=== PATIENT | male | born 1950 | race Caucasian/White ===

== ENCOUNTER 2020-10-16 15:10 | Inpatient (IN) | payer OTHER ==
[~2020-10-16] VITALS: Ht 188 cm; Wt 113.5 kg
[2020-10-16 15:45] LABS: BASOPHILS % (AUTO) 0.7 % (0.0-5.0); EOSINOPHILS % (AUTO) 2.4 % (0.0-8.0); HEMATOCRIT 37.9 % (42-54); LYMPHOCYTES % (AUTO) 26.7 % (21.0-51.0); MEAN CORPUSCULAR HEMOGLOBIN 29.5 pg (27.0-33.0); MEAN CORPUSCULAR HGB CONC 32.2 g/dL (32.0-36.0); MEAN CORPUSCULAR VOLUME 91.5 fL (79-99); NEUTROPHILS % (AUTO) 59.9 % (40.0-77.0); PLATELET COUNT (AUTO) 254 K/uL (130-400); RED BLOOD CELL COUNT(AUTO) 4.14 MIL/uL (4.50-6.20); RED CELL DISTRIBUTION WIDTH 15.4 % (11.0-15.5); WHITE BLOOD COUNT (AUTO) 8.8 K/uL (4.8-10.8)
[2020-10-16] MEDS ORDERED: ASPIRIN 325 MG TABLET ONE (15:46)
[2020-10-16 15:58] LABS: INR 1.1 (0.85-1.15); PROTHROMBIN TIME 11.9 SEC (9.6-11.6)
[2020-10-16 16:10] LABS: CREATININE 1.7 mg/dL (0.5-1.5); POTASSIUM 4.2 mmol/L (3.5-5.1)
[2020-10-16 16:15] LABS: ALBUMIN 3.4 g/dL (3.5-5.0); BILIRUBIN,TOTAL 0.5 mg/dL (0.2-1.0); TOTAL PROTEIN, SERUM 7.9 g/dL (6.0-8.3)
[2020-10-16] MEDS ORDERED: FUROSEMIDE 40MG VIAL ONE (17:09)
[2020-10-16] MEDS ORDERED: ACETAMINOPHEN 325 MG TAB PO PRN (18:45)
[2020-10-16] MEDS ORDERED: HEPARIN 25,000 UNITS/250ML D5W 250 ML IV PRN (19:00)
[2020-10-16 19:34] LABS: APPEARANCE,URINE Clear (CLEAR); BILIRUBIN,URINE Negative (NEGATIVE); COLOR,URINE Yellow (YELLOW); GLUCOSE, URINE (UA) 250 mg/dL (NEGATIVE); KETONES,URINE Negative (NEGATIVE); LEUKOCYTE ESTERASE ,URINE Negative (NEGATIVE); NITRATE,URINE Negative (NEGATIVE); OCCULT BLOOD,URINE Negative (NEGATIVE); PROTEIN,URINE Negative (NEGATIVE); UROBILINOGEN,URINE 0.2 mg/dL (0.2-1.0)
[2020-10-16 20:12] LABS: BACTERIA,URINE Rare /HPF (None Seen); RBC,URINE None Seen /HPF (0-1); SQUAMOUS EPITHELIAL CELL,UR None Seen /HPF (0-2); WBC,URINE 0-1 /HPF (0-1)
[2020-10-16] MEDS: INSULIN R PO SS1 SQ SCH (21:00)
[2020-10-17] VITALS (7 sets, daily range): BP systolic 114–128; BP diastolic 69–84
[2020-10-17 02:34] LABS: TROPONIN I 0.04 ng/mL (0.00-0.06)
[2020-10-17] MEDS: FUROSEMIDE 40MG VIAL IVP SCH ×2 (04:35→18:00)
[2020-10-17 04:49] LABS: HEMATOCRIT 35.1 % (42-54); MEAN CORPUSCULAR HEMOGLOBIN 28.9 pg (27.0-33.0); MEAN CORPUSCULAR HGB CONC 31.6 g/dL (32.0-36.0); MEAN CORPUSCULAR VOLUME 91.4 fL (79-99); RED BLOOD CELL COUNT(AUTO) 3.84 MIL/uL (4.50-6.20); RED CELL DISTRIBUTION WIDTH 14.9 % (11.0-15.5); WHITE BLOOD COUNT (AUTO) 8.6 K/uL (4.8-10.8)
[2020-10-17 05:03] LABS: HEMOGLOBIN A1C 6.8 % (4.0-6.0)
[2020-10-17 05:07] LABS: CREATININE 1.6 mg/dL (0.5-1.5); POTASSIUM 3.9 mmol/L (3.5-5.1)
[2020-10-17] MEDS: INSULIN R PO SS1 SQ SCH ×4 (06:26→21:00)
[2020-10-17] MEDS ORDERED: QUET200T30 PO (06:28)
[2020-10-17] MEDS: ASPIRIN 81MG CHEW TAB PO SCH (09:09)
[2020-10-17 10:28] LABS: TROPONIN I 0.05 ng/mL (0.00-0.06)
[2020-10-18 04:12] VITALS: BP 130/60
[2020-10-18] MEDS: FUROSEMIDE 40MG VIAL IVP SCH ×2 (05:19→18:54)
[2020-10-18] MEDS: INSULIN R PO SS1 SQ SCH ×4 (06:14→20:45)
[2020-10-18 08:00] VITALS: BP 111/59
[2020-10-18] MEDS: ASPIRIN 81MG CHEW TAB PO SCH (08:08)
[2020-10-18 12:06] VITALS: BP 101/70
[2020-10-18 16:00] VITALS: BP 140/95
[2020-10-18 20:00] VITALS: BP 130/80
[2020-10-18] MEDS: NITROGLYCERIN 1GM OINT 1 INCH/1GM TD SCH (20:44)
[2020-10-18 23:53] VITALS: BP 138/82
[2020-10-19 04:01] VITALS: BP 117/57
[2020-10-19] MEDS: FUROSEMIDE 40MG VIAL IVP SCH ×2 (05:10→17:34)
[2020-10-19 05:21] LABS: HEMATOCRIT 34.9 % (42-54); MEAN CORPUSCULAR HEMOGLOBIN 29.4 pg (27.0-33.0); MEAN CORPUSCULAR HGB CONC 33.2 g/dL (32.0-36.0); MEAN CORPUSCULAR VOLUME 88.6 fL (79-99); RED BLOOD CELL COUNT(AUTO) 3.94 MIL/uL (4.50-6.20); RED CELL DISTRIBUTION WIDTH 14.4 % (11.0-15.5); WHITE BLOOD COUNT (AUTO) 9.1 K/uL (4.8-10.8)
[2020-10-19 05:26] LABS: CREATININE 1.5 mg/dL (0.5-1.5); MAGNESIUM 2.2 mg/dL (1.80-2.40); POTASSIUM 3.5 mmol/L (3.5-5.1)
[2020-10-19] MEDS: INSULIN R PO SS1 SQ SCH ×4 (06:31→20:06)
[2020-10-19 07:20] VITALS: BP 110/77
[2020-10-19] MEDS: ASPIRIN 81MG CHEW TAB PO SCH (08:12)
[2020-10-19] MEDS: NITROGLYCERIN 1GM OINT 1 INCH/1GM TD SCH ×2 (08:13→20:05)
[2020-10-19 11:11] VITALS: BP 106/74
[2020-10-19 16:00] VITALS: BP 98/59
[2020-10-19 20:00] VITALS: BP 131/86
[2020-10-20 00:57] VITALS: BP 140/64
[2020-10-20] MEDS: FUROSEMIDE 40MG VIAL IVP SCH ×2 (04:35→17:13)
[2020-10-20 06:03] VITALS: BP 108/57
[2020-10-20 07:30] VITALS: BP 101/58
[2020-10-20] MEDS: INSULIN R PO SS1 SQ SCH ×4 (07:30→21:00)
[2020-10-20] MEDS: NITROGLYCERIN 1GM OINT 1 INCH/1GM TD SCH ×2 (08:21→21:07)
[2020-10-20] MEDS: ASPIRIN 81MG CHEW TAB PO SCH (08:21)
[2020-10-20 11:00] VITALS: BP 99/75
[2020-10-20 16:00] VITALS: BP 103/64
[2020-10-20 20:00] VITALS: BP 124/76
[2020-10-21 00:04] VITALS: BP 117/73
[2020-10-21] MEDS ORDERED: METF-444 PO (03:23)
[2020-10-21] MEDS ORDERED: ERGO500093 PO (03:23)
[2020-10-21] MEDS ORDERED: FURO40TA5 PO (03:23)
[2020-10-21] MEDS ORDERED: TAMS-1 PO (03:23)
[2020-10-21] MEDS ORDERED: MUPI22O TP (03:23)
[2020-10-21] MEDS ORDERED: CLON1TAB12 PO (03:23)
[2020-10-21] MEDS ORDERED: ROSU10TA28 PO (03:23)
[2020-10-21] MEDS ORDERED: ENAL20TA18 PO (03:23)
[2020-10-21] MEDS ORDERED: METO100T14 PO (03:23)
[2020-10-21 04:00] VITALS: BP 113/73
[2020-10-21] MEDS: FUROSEMIDE 40MG VIAL IVP SCH (04:50)
[2020-10-21] MEDS: INSULIN R PO SS1 SQ SCH ×2 (06:01→11:30)
[2020-10-21 07:30] VITALS: BP 96/65
[2020-10-21] MEDS: ASPIRIN 81MG CHEW TAB PO SCH (10:40)
[2020-10-21] MEDS: NITROGLYCERIN 1GM OINT 1 INCH/1GM TD SCH (10:41)
[2020-10-21 11:00] VITALS: BP 118/65
[2020-11-08] MEDS ORDERED: FLUO20CA36 PO (12:24)
[2020-11-08] MEDS ORDERED: ASPI-1443 PO (12:24)
[2020-11-08] MEDS ORDERED: SACU1TAB PO (12:24)
[2020-11-08] MEDS ORDERED: APIX5TAB PO (12:24)
== END 2020-10-21 20:25 | disposition home or self-care (01) | DRG 291 ==
LOC: EDH 15:10 → EDHIP 18:00 → 3CH 10-17 02:22
PROVIDERS: ADMIT Internal Medicine Infectious Disease; ATTEND Internal Medicine Infectious Disease
DX: I11.0 Hypertensive heart disease with heart failure (principal); J96.91 Respiratory failure, unspecified with hypoxia; M86.8X7 Other osteomyelitis, ankle and foot; I48.91 Unspecified atrial fibrillation; I50.23 Acute on chronic systolic (congestive) heart failure; E11.621 Type 2 diabetes mellitus with foot ulcer; E11.51 Type 2 diabetes mellitus with diabetic peripheral angiopathy without gangrene; E11.69 Type 2 diabetes mellitus with other specified complication; I25.10 Atherosclerotic heart disease of native coronary artery without angina pectoris; L97.519 Non-pressure chronic ulcer of other part of right foot with unspecified severity; E66.9 Obesity, unspecified; Z20.822 Contact with and (suspected) exposure to COVID-19; Z88.0 Allergy status to penicillin; Z68.32 Body mass index [BMI] 32.0-32.9, adult; Z83.3 Family history of diabetes mellitus; Z91.19 Patient's noncompliance with other medical treatment and regimen
CPT/HCPCS: 36415; 71045; 80048; 80053; 81001; 82550; 82948; 83036; 83735; 83874; 83880; 84484; 85025; 85027; 85378; 85610; 85730; 87426; 93005; 93970; G0378; J1815; J1940; U0003

== ENCOUNTER 2020-11-01 08:27 | Emergency (ER) | payer OTHER ==
[~2020-11-01 08:27] MED LIST: CLON1TAB12 PO; ENAL20TA18 PO; ERGO500014 PO; FURO40TA5 PO; METF-444 PO; METO100T14 PO; MUPI22O TP; QUET200T29 PO; ROSU10TA28 PO; TAMS-1 PO
[2020-11-01 09:54] LABS: BASOPHILS % (AUTO) 0.4 % (0.0-5.0); EOSINOPHILS % (AUTO) 1.5 % (0.0-8.0); HEMATOCRIT 36.9 % (42-54); LYMPHOCYTES % (AUTO) 17.1 % (21.0-51.0); MEAN CORPUSCULAR HEMOGLOBIN 29.1 pg (27.0-33.0); MEAN CORPUSCULAR HGB CONC 31.7 g/dL (32.0-36.0); MEAN CORPUSCULAR VOLUME 91.8 fL (79-99); MONOCYTES % (AUTO) 6.3 % (3.0-13.0); NEUTROPHILS % (AUTO) 74.4 % (40.0-77.0); PLATELET COUNT (AUTO) 211 K/uL (130-400); RED BLOOD CELL COUNT(AUTO) 4.02 MIL/uL (4.50-6.20); RED CELL DISTRIBUTION WIDTH 15.2 % (11.0-15.5); WHITE BLOOD COUNT (AUTO) 9.6 K/uL (4.8-10.8)
[2020-11-01 09:56] LABS: APPEARANCE,URINE Clear (CLEAR); BILIRUBIN,URINE Negative (NEGATIVE); COLOR,URINE Yellow (YELLOW); GLUCOSE, URINE (UA) Negative (NEGATIVE); KETONES,URINE Negative (NEGATIVE); LEUKOCYTE ESTERASE ,URINE Negative (NEGATIVE); NITRATE,URINE Negative (NEGATIVE); OCCULT BLOOD,URINE Negative (NEGATIVE); PH,URINE 5.5 (5.0-8.0); PROTEIN,URINE Negative (NEGATIVE); UROBILINOGEN,URINE 0.2 mg/dL (0.2-1.0)
[2020-11-01 10:03] LABS: CREATININE 1.8 mg/dL (0.5-1.5); POTASSIUM 4.2 mmol/L (3.5-5.1)
[2020-11-01 10:08] LABS: ALBUMIN 3.3 g/dL (3.5-5.0); BILIRUBIN,TOTAL 0.5 mg/dL (0.2-1.0); TOTAL PROTEIN, SERUM 7.5 g/dL (6.0-8.3)
== END 2020-11-01 12:57 | disposition home or self-care (01) ==
LOC: EDH 08:27
DX: M51.34 Other intervertebral disc degeneration, thoracic region (principal); G89.29 Other chronic pain; M54.5 Low back pain; E11.9 Type 2 diabetes mellitus without complications; I10 Essential (primary) hypertension; Z88.0 Allergy status to penicillin; I48.91 Unspecified atrial fibrillation
CPT/HCPCS: 36415; 71045; 72070; 80053; 81003; 85025; 93005

== ENCOUNTER 2020-11-27 09:54 | Emergency (ER) | payer OTHER ==
[~2020-11-27 09:54] MED LIST changes: +APIX5TAB PO; +ASPI-1443 PO; +FLUO20CA35 PO; +SACU1TAB PO
[2020-11-27] MEDS ORDERED: HYDROCORTISONE SOD SUCCINATE 100 MG/2 ML VIAL ONE (10:32)
[2020-11-27] MEDS ORDERED: CYCLOBENZAPRINE HCL 10 MG TABLET ONE (10:32)
[2020-11-27] MEDS ORDERED: HYDROCODONE/ACETAMINOPHEN 10/325 MG TAB ONE (10:33)
[2020-11-27 10:37] LABS: BASOPHILS % (AUTO) 0.3 % (0.0-5.0); EOSINOPHILS % (AUTO) 0.8 % (0.0-8.0); HEMATOCRIT 35.1 % (42-54); LYMPHOCYTES % (AUTO) 14.5 % (21.0-51.0); MEAN CORPUSCULAR HEMOGLOBIN 28.3 pg (27.0-33.0); MEAN CORPUSCULAR HGB CONC 31.6 g/dL (32.0-36.0); MEAN CORPUSCULAR VOLUME 89.5 fL (79-99); PLATELET COUNT (AUTO) 215 K/uL (130-400); RED BLOOD CELL COUNT(AUTO) 3.92 MIL/uL (4.50-6.20); RED CELL DISTRIBUTION WIDTH 16.7 % (11.0-15.5); WHITE BLOOD COUNT (AUTO) 9.8 K/uL (4.8-10.8)
[2020-11-27 10:55] LABS: ALBUMIN 3.1 g/dL (3.5-5.0); BILIRUBIN,TOTAL 1.1 mg/dL (0.2-1.0); CREATININE 1.9 mg/dL (0.5-1.5); POTASSIUM 3.8 mmol/L (3.5-5.1)
== END 2020-11-27 15:13 | disposition home or self-care (01) ==
LOC: EDH 09:54
DX: M54.5 Low back pain (principal); G89.29 Other chronic pain; F42.3 Hoarding disorder; I10 Essential (primary) hypertension; E11.9 Type 2 diabetes mellitus without complications; Z88.0 Allergy status to penicillin; Z98.890 Other specified postprocedural states
CPT/HCPCS: 36415; 80053; 85025; 99283; J1720

== ENCOUNTER 2020-11-28 10:59 | Emergency (ER) | payer OTHER ==
[2020-11-28 12:03] LABS: BASOPHILS % (AUTO) 0.4 % (0.0-5.0); EOSINOPHILS % (AUTO) 0.9 % (0.0-8.0); HEMATOCRIT 38.2 % (42-54); MEAN CORPUSCULAR HEMOGLOBIN 28.7 pg (27.0-33.0); MEAN CORPUSCULAR HGB CONC 31.7 g/dL (32.0-36.0); MEAN CORPUSCULAR VOLUME 90.7 fL (79-99); MONOCYTES % (AUTO) 7.4 % (3.0-13.0); NEUTROPHILS % (AUTO) 58.7 % (40.0-77.0); NUCLEATED RED BLOOD CELLS 0.4 % (0.0-0.19); PLATELET COUNT (AUTO) 241 K/uL (130-400); RED BLOOD CELL COUNT(AUTO) 4.21 MIL/uL (4.50-6.20); RED CELL DISTRIBUTION WIDTH 16.8 % (11.0-15.5); WHITE BLOOD COUNT (AUTO) 10.3 K/uL (4.8-10.8)
[2020-11-28 12:19] LABS: ALBUMIN 3.3 g/dL (3.5-5.0); BILIRUBIN,TOTAL 1.1 mg/dL (0.2-1.0); CREATININE 1.9 mg/dL (0.5-1.5); POTASSIUM 4.1 mmol/L (3.5-5.1); TOTAL PROTEIN, SERUM 7.6 g/dL (6.0-8.3)
[2020-11-28 12:29] LABS: B-TYPE NATRIURETIC PEPTIDE 1180 pg/mL (0-100)
[2020-11-28] MEDS ORDERED: FUROSEMIDE 10 MG/ML 4ML VIAL ONE (14:12)
== END 2020-11-28 16:01 | disposition home or self-care (01) ==
LOC: EDH 10:59
DX: I13.0 Hypertensive heart and chronic kidney disease with heart failure and stage 1 through stage 4 chronic kidney disease, or unspecified chronic kidney disease (principal); I50.23 Acute on chronic systolic (congestive) heart failure; E11.22 Type 2 diabetes mellitus with diabetic chronic kidney disease; N18.9 Chronic kidney disease, unspecified; G89.29 Other chronic pain; M54.5 Low back pain; Z87.891 Personal history of nicotine dependence; Z88.0 Allergy status to penicillin
CPT/HCPCS: 36415; 71046; 80053; 82550; 83880; 84484; 85025; 93005; 96374; 99285; J1940

== ENCOUNTER 2020-11-30 02:01 | Emergency (ER) | payer OTHER | END 2020-11-30 03:26 | disposition home or self-care (01) | LOC: EDH 02:01 | DX: R12 Heartburn (principal); Z59.4 Lack of adequate food; E11.9 Type 2 diabetes mellitus without complications; I10 Essential (primary) hypertension; Z88.0 Allergy status to penicillin; Z98.890 Other specified postprocedural states ==